=== PATIENT | female | born 1990 | race Caucasian/White ===

== ENCOUNTER 2020-05-24 03:14 | Inpatient (IN) | payer MEDICAID ==
[2020-05-18 10:19] LABS: ABSOLUTE EOSINOPHILS # (AUTO) 0.1 10^3/uL (0.0-0.6); ABSOLUTE MONOCYTES (AUTO) 0.5 10^3/uL (0.1-1.4); ABSOLUTE NEUT (AUTO) 5.7 10^3/uL (1.7-8.2); BASOPHILS % (AUTO) 0.4 % (0-2); EOSINOPHILS % (AUTO) 1.1 % (0-6); HEMATOCRIT 33.4 % (36.0-47.0); HEMOGLOBIN 11.9 g/dL (12.0-15.5); LYMPHOCYTES % (AUTO) 23.9 % (13-45); MEAN CORPUSCULAR HGB CONC 35.7 g/dL (32.0-36.0); MEAN CORPUSCULAR VOLUME 87 fl (80-97); MONOCYTES % (AUTO) 6.1 % (3-13); PLATELET COUNT 134 10^3/uL (150-450); RED BLOOD COUNT 3.84 10^6/uL (3.72-5.28); RED CELL DISTRIBUTION WIDTH 12.8 % (11.5-14.0); SEGMENTED NEUTROPHILS % (AUTO) 68.5 % (42-78); TOTAL CELLS COUNTED % (AUTO) 100 %; WHITE BLOOD COUNT 8.2 10^3/uL (4.0-10.5)
[2020-05-18 10:35] LABS: APPEARANCE,URINE SLIGHTLY-CLOUDY; BILIRUBIN,URINE NEGATIVE (NEGATIVE); COLOR,URINE YELLOW; GLUCOSE, URINE NEGATIVE (NEGATIVE); KETONES,URINE NEGATIVE (NEGATIVE); LEUKOCYTE ESTERASE,URINE MODERATE (NEGATIVE); NITRITE,URINE NEGATIVE (NEGATIVE); PROTEIN,URINE NEGATIVE (NEGATIVE); URINE SPECIFIC GRAVITY 1.009; UROBILINOGEN,URINE NEGATIVE mg/dL (<2.0)
[2020-05-18 10:36] LABS: URINE AMPHETAMINES SCREEN NEGATIVE; URINE BARBITURATES SCREEN NEGATIVE; URINE BENZODIAZEPINES SCREEN NEGATIVE; URINE COCAINE SCREEN NEGATIVE; URINE MARIJUANA (THC) SCREEN NEGATIVE; URINE METHADONE SCREEN NEGATIVE; URINE PHENCYCLIDINE SCREEN NEGATIVE
[2020-05-24] MEDS ORDERED: RINGERS SOLUTION,LACTATED 1,000 ML IV PRN ×2 (05:00→12:33)
[2020-05-24] MEDS ORDERED: LACTATED RINGERS 1000 ML IV PRN (05:00)
[2020-05-24] MEDS ORDERED: CEFAZOLIN 2 GM/D5W RTU 2 GM/50 ML RTUPB IV PRN (05:00)
[2020-05-24] MEDS ORDERED: EPHEDRINE SULFATE INJ 50 MG/1 ML AMPULE ONE (10:39)
[2020-05-24] MEDS ORDERED: GLYCOPYRROLATE INJ 0.4 MG/2 ML VIAL ONE (10:39)
[2020-05-24] MEDS ORDERED: MIDAZOLAM 2 MG/2 ML INJ ONE (10:39)
[2020-05-24] MEDS ORDERED: OXYTOCIN 10 UNIT/ML VIAL ONE (10:39)
[2020-05-24] MEDS ORDERED: KETOROLAC TROMETHAMINE INJ/PF 30 MG/1 ML SDV ONE (10:39)
[2020-05-24] MEDS ORDERED: FENTANYL CITRATE INJ/PF 100 MCG/2 ML AMPUL ONE (10:39)
[2020-05-24] MEDS ORDERED: OXYTOCIN/0.9 % SODIUM CHLORIDE 30 UNIT/500 ML RTUINJ ONE (10:39)
[2020-05-24] MEDS ORDERED: ACETAMINOPHEN 1,000 MG/100 ML RTUPB IV ONE (10:40)
[2020-05-24] MEDS ORDERED: ONDANSETRON HCL INJ/PF 4 MG/2 ML SDV ONE (10:40)
[2020-05-24] MEDS ORDERED: CEFAZOLIN 2 GM/D5W RTU 2 GM/50 ML RTUPB IV ONE (11:18)
[2020-05-24] MEDS ORDERED: MEPERIDINE HCL/PF INJ 25 MG/1 ML DISP.SYRIN IV PRN (11:28)
[2020-05-24] MEDS ORDERED: OXYCODONE-ACETAMINOPHEN 5-325 MG TABLET PO PRN ×3 (11:28→12:33)
[2020-05-24] MEDS ORDERED: DIPHENHYDRAMINE HCL 50 MG/ML VIAL IV PRN (11:28)
[2020-05-24] MEDS ORDERED: PROMETHAZINE HCL INJ 25 MG/1 ML VIAL IV PRN ×3 (11:28→12:33)
[2020-05-24] MEDS ORDERED: FENTANYL CITRATE INJ/PF 100 MCG/2 ML AMPUL IV PRN ×3 (11:28)
[2020-05-24] MEDS ORDERED: MORPHINE SULFATE 10 MG/ML INJ IV PRN (11:28)
[2020-05-24] MEDS ORDERED: OXYTOCIN/0.9 % SODIUM CHLORIDE 30 UNIT/500 ML RTUINJ IV PRN (12:33)
[2020-05-24] MEDS ORDERED: ACETAMINOPHEN 325 MG TABLET PO PRN (12:33)
[2020-05-24] MEDS ORDERED: SIMETHICONE 80 MG TAB.CHEW PO PRN (12:33)
[2020-05-24] MEDS ORDERED: DIPH/PERTUSS(ACELL)/TETANUS VAC/PF 0.5 ML SYR (>=10YO) IM PRN (12:33)
[2020-05-24] MEDS ORDERED: MEASLES,MUMPS&RUBELLA VACC/PF 0.5 ML VIAL SUBCUT PRN (12:33)
--- NOTE | 2020-05-24 12:33 | Operative Report ---
Operative Report DATE OF SURGERY: 05/24/20 PREOPERATIVE DIAGNOSIS: Intrauterine at 39+ weeks EGA by first enedina mayers . Prior section. Unwanted fertility POSTOPERATIVE DIAGNOSIS: Same as above OPERATION: Repeat section and bilateral tubal ligation SURGEON: CHRISTOPHER EMMANUEL ANESTHESIA: Spinal TISSUE REMOVED OR ALTERED: Placenta COMPLICATIONS: None ESTIMATED BLOOD LOSS: 800cc INTRAOPERATIVE FINDINGS: Normal appearing uterus, bilateral fallopian tubes and ovaries. Mild scar tissue between rectus fascia and rectus muscles PROCEDURE: IV fluids: per anesthesia record Urinary output: 300 cc clear yellow urine Position: To recovery room in stable condition Description of procedure: The patient was taken to the operating room and spinal anesthesia was administered and found to be adequate. She was then placed on the OR table in the supine position with a slight leftward tilt. Patient was prepped and draped in usual sterile fashion. Ancef 2 gms was given IV prior to the procedure for infection prophylaxis. Timeout was taken. A Pfannenstiel skin incision was then made approximately 3 cm above the pubic symphysis and carried down to level the rectus fascia. The rectus fascia was then nicked in the midline with a scalpel and the fascial incision was extended laterally with use of curved Wolf scissors. The rectus fascia was then grasped with 2 Kocker clamps elevated and the underlying rectus muscle was dissected off both bluntly and sharply. Scar tissue noted as above. Any bleeding controlled with cautery. The rectus muscles were then split in the midline and the peritoneum was entered. The peritoneal incision was then extended by manually stretching the peritoneum. The bladder blade was positioned. Bladder was noted to be out of harm's way. A scalpel was then used in the lower uterine for the hysterotomy, slowly until amniotomy was obtained a large amount of fluid was noted. The uterine incision was then manually stretched. The infant was noted to be in vertex postion but engaged in the pelvis. The head was delivered with minmal difficulty. The shoulders and the rest of the body followed immediately. The cord was cut clamped and the infant was handed off to the nurse awaiting. was crying prior to hand off. The placenta was manually delivered. Using a lap gauze the uterus was cleared of all clots and debris. The uterus was then exteriorized and a bladder blade was repositioned. The uterine incision was then closed with 0 Chromic suture in a running locked fashion. A second layer of the same suture was used in a running locked imbricated fashion. The uterine incision was inspected and noted to be hemostatic. The posterior aspect of the uterus was then inspected and anatomy was seen as above. The right fallopian tube was identified and traced to the fimbriated end. A filshie clip was placed approximately 2 cm from the uterine cornu. Clip surrounded the tube in its entirety. Blanching noted and hemostasis. The left fallopian tube was identified and traced to the fimbriated end. A filshie clip was placed approximately 2 cm from the uterine cornu. Clip surrounded the tube in its entirety. Blanching noted and hemostasis. The uterus was returned to its normal anatomic position within the abdominal cavity. Warm saline irrigation was used to clear all clots and debris from the abdomen. The uterine incision was inspected once more and noted to remain hemostatic. The bladder blade was removed and the peritoneum was closed with 2-0 chromic in a running fashion. The rectus muscles were then reapproximated and the rectus fascia was closed with a #0 looped PDS in a running fashion. The subcutaneous tissue was then inspected and any bleeding was controlled with Bovie electrocautery. The subcutaneous tissue was then closed with 2-0 Plain Gut suture in a running fashion. The skin was then closed with 3-0 Monocryl in a running subcuticular fashion. The skin incision was then clean dried and Dermabond was applied over the skin incision. All instrument sponge and needle counts were correct x3 for the procedure the patient tolerated the procedure well. She will proceed to recovery room in stable condition
[2020-05-24] MEDS ORDERED: HYDROMORPHONE HCL INJ/PF 2 MG/ML AMPULE ONE (13:21)
[2020-05-24] MEDS: HYDROMORPHONE HCL INJ/PF 2 MG/ML AMPULE IV PRN ×2 (13:23→17:21)
[2020-05-24] MEDS: OXYCODONE-ACETAMINOPHEN 5-325 MG TABLET PO PRN (14:55)
[2020-05-24] MEDS: DOCUSATE SODIUM 100 MG CAPSULE PO SCH (17:21)
[2020-05-24] MEDS ORDERED: KETOROLAC TROMETHAMINE INJ/PF 30 MG/1 ML SDV IV SCH (18:00)
[2020-05-24] MEDS: KETOROLAC TROMETHAMINE INJ/PF 30 MG/1 ML SDV IV SCH (22:29)
[2020-05-25] MEDS: KETOROLAC TROMETHAMINE INJ/PF 30 MG/1 ML SDV IV SCH (06:10)
[2020-05-25 07:58] LABS: HEMATOCRIT 30.4 % (36.0-47.0); HEMOGLOBIN 10.4 g/dL (12.0-15.5); MEAN CORPUSCULAR HGB CONC 34.3 g/dL (32.0-36.0); MEAN CORPUSCULAR VOLUME 87 fl (80-97); PLATELET COUNT 133 10^3/uL (150-450); RED BLOOD COUNT 3.48 10^6/uL (3.72-5.28); RED CELL DISTRIBUTION WIDTH 12.6 % (11.5-14.0); WHITE BLOOD COUNT 11.6 10^3/uL (4.0-10.5)
[2020-05-25] MEDS: DOCUSATE SODIUM 100 MG CAPSULE PO SCH ×2 (09:03→17:06)
[2020-05-25] MEDS: PRENATAL VITAMIN W DHA CAPSULE PO SCH (09:03)
[2020-05-25] MEDS: OXYCODONE-ACETAMINOPHEN 5-325 MG TABLET PO PRN ×2 (10:49→20:39)
--- NOTE | 2020-05-25 11:03 | PDOC PROGRESS REPORT ---
Subjective-OB Progress Note for:: 05/25/20 Subjective: Pt doing well, no concerns. She reports light bleeding reg diet and voiding w/o difficulty. Physical Exam (OB) Vital Signs: Temp Pulse Resp BP Pulse Ox 97.3 F 80 17 120/69 100 05/25/20 07:39 05/25/20 07:39 05/25/20 07:39 05/25/20 07:39 05/25/20 07:39 Intake & Output 05/24/20 05/25/20 05/26/20 06:59 06:59 06:59 Intake Total 1640 Output Total 1400 Balance 240 - PIH/Pre-Eclampsia Clonus: Negative Headache: Absent Epigastric Pain: No Visual Changes: No - Dressing Removed: No Incision: Dressing, Well Approximated Closure Type: Opsite - Maternal Morbidity 59. Maternal Morbidity (serious complications experinced by the mother associated with labor and delivery: None of the above - Lochia Lochia Amount: Small 10-25 ml Lochia Color: Rubra/Red - Abdomen Description: Soft, Round Hernia Present: No Fundal Description: Firm, Midline Fundal Height: u/u - u/2 Objective-Diagnostic Laboratory: 05/25/20 07:48 05/25/20 07:48 WBC 11.6 H RBC 3.48 L Hgb 10.4 L Hct 30.4 L MCV 87 MCH 30.0 MCHC 34.3 RDW 12.6 Plt Count 133 L Assessment and Plan(PN) - Assessment and Plan (1) delivery delivered Is this a current diagnosis for this admission?: Yes - Time Spent with Patient Time with patient: Less than 15 minutes Medications reviewed and adjusted accordingly: Yes - Disposition Anticipated Discharge Disposition: Home, Self Care Anticipated Discharge Timeframe: within 24 hours
[2020-05-25] MEDS: IBUPROFEN 800 MG TABLET PO SCH ×2 (14:28→21:53)
--- OUTSIDE RECORDS SUMMARY | 2020-05-25 17:59 | XMS REPORT ---
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 unspecified site Encounter for other general counseling and Active advice on contraceptive management Acute upper respiratory infections of Active unspecified site Encounter for other general counseling and Active advice on contraceptive management Acute upper respiratory infections of Active unspecified site Encounter for other general counseling and Active advice on contraceptive management Acute upper respiratory infections of Active unspecified site Encounter for other general counseling and Active advice on contraceptive management Acute upper respiratory infections of Active unspecified site Encounters Start End Encounter Admission Attending Care Care Encounter ID Date/Time Date/Time Type Type Clinicians Facility Department 2018-05-18 2018-05-18 [facility] CHRIS BOBBY [facility] [id number] 13:20:03 13:57:44 MARIAJOSE 2018-05-01 2018-05-01 [facility] [id number] 14:51:58 15:27:23 2018-05-01 2018-05-01 [facility] CHRIS WEAEVR [facility] [id number] 14:51:58 15:27:23 PAULA 2018-04-17 2018-04-17 Outpatient [facility] [id number] 00:00:00 00:00:00 2018-04-16 2018-04-16 Outpatient [facility] [id number] 00:00:00 00:00:00 2017-11-06 2017-11-06 Outpatient [facility] [id number] 00:00:00 00:00:00 [id number] 2017-11-05 [facility] CHRIS WEAVER [facility] [id number] 14:05:20 15:11:56 PAULA 2017-10-17 2017-10-17 [facility] CHRIS BOBBY [facility] [id number] 09:57:36 10:55:37 MARIAJOSE 2017-09-25 2017-09-25 Outpatient [facility] [id number] 14:57:41 16:50:07 [id number] 2017-09-25 2017-09-25 Outpatient [facility] [id number] 00:00:00 00:00:00 [id number] 2017-09-16 [facility] CHRIS BOBBY [facility] [id number] 09:56:01 11:08:14 MARIAJOSE 2017-08-17 2017-08-17 Emergency [facility] [id number] 14_20 15:40:03 15:52:00 [id number] 2017-08-17 2017-08-17 Emergency [facility] [id number] 15:40:03 15:52:00 2017-08-17 2017-08-17 Emergency ER [facility] [id number] 14_[id number] 15:18:00 15:18:00 [id number] 2017-08-11 2017-08-11 Emergency ER BIBIANA [facility] [id number] 12:01:22 13:31:00 EDI [id number] 2017-08-11 2017-08-11 Emergency [facility] [id number] 12:01:22 13:31:00 2017-08-11 2017-08-11 Emergency ER [facility] [id number] 11:02:00 11:02:00 [id number] 2017-08-09 2017-08-10 Emergency ER CAITLYN [facility] [id number] 23:20:29 02:21:00 FAUSTINO [id number] 2017-08-09 2017-08-10 Emergency [facility] [id number] 23:20:29 02:21:00 2017-08-09 2017-08-09 Emergency [facility] [id number] 23:43:12 23:59:00 [id number] 2017-08-09 2017-08-09 Emergency ER [facility] [id number] 23:03:00 23:03:00 [id number] 2017-08-01 2017-08-01 Outpatient Candiceferman [facility] [place] [id number] 00:00:00 00:00:00 Celena CAMPOS 360 [facility] 2017-03-26 2017-03-26 Outpatient Candiceferman [facility] [place] [id number] 00:00:00 00:00:00 Celena CAMPOS 320 [facility] 2017-01-06 2017-01-06 Outpatient Christa COLLAZO, [facility] [place] [id number] 00:00:00 00:00:00 Liseth Duff 170 [facility] 2016-10-08 2016-10-08 Outpatient Bruna YOUNG, [facility] [place] [id number] 00:00:00 00:00:00 Delmi Duff 880 [facility] 2016-07-19 2016-07-19 Outpatient Silverio COLLAZO, [facility] [place] [id number] 00:00:00 00:00:00 Joe Duff 670 [facility] 2016-01-24 2016-01-24 Outpatient Bruna YOUNG, [facility] [place] [id number] 00:00:00 00:00:00 Delmijermaine Duff 720 [facility] 2015 2015 Outpatient Svetach PA-C, [facility] [place] [id number] 00:00:00 00:00:00 Delmi Duff 060 [facility] 2015-09-20 2015-09-20 Outpatient Alvarenga FOREIGN SERVICE TEACHER, [facility] [place] [id number] 13:00:00 13:00:00 [facility] 2015-09-20 2015-09-20 Outpatient Alvarenga FOREIGN SERVICE TEACHER, [facility] [place] [id number] 00:00:00 00:00:00 [facility] 380 [facility] 2015-09-14 2015-09-14 Outpatient [facility] [place] [id number] 13:40:00 13:40:00 [facility] 2015-07-25 2015-07-25 Outpatient Svetach PA-C, [facility] [place] 15 [id number] 10:20:00 10:20:00 [facility] 2015-07-25 2015-07-25 Outpatient Svetach PA-C, [facility] [place] [id number] 00:00:00 00:00:00 Delmi Duff 0 [facility] Immunizations Ordered Immunization Filled Immunization Date Status Commen ts Refusal Reason Name Name TdaP 2017-08-11 Completed 00:00:00 HiB, unspecified 1994-09-02 Completed 00:00:00 OPV 1994-09-02 Completed 00:00:00 DTP 1994-09-02 Completed 00:00:00 MMR 1994-02-27 Completed 00:00:00 Hepatitis B, Adult 1993-07-18 Completed 00:00:00 HiB, unspecified 1993-06-15 Completed 00:00:00 DTP 1993-06-15 Completed 00:00:00 HiB, unspecified 1993-04-25 Completed 00:00:00 OPV 1993-04-25 Completed 00:00:00 DTP 1993-04-25 Completed 00:00:00 Hepatitis B, Adult 1993-02-12 Completed 00:00:00 HiB, unspecified 1993-02-12 Completed 00:00:00 OPV 1993-02-12 Completed 00:00:00 DTP 1993-02-12 Completed 00:00:00 Hepatitis B, Adult 1992 Completed 00:00:00 Payers Payer Name Policy Type Policy Number Effective Date Expiration D ate [facility] OTHER 1 [id number] 2017 00:00: 00 [place] 3 [id number] 2018 00:00:00 PLANNING [facility] [id number] 2017 00:00:00 [place] [id number] 2010 00:00:00 PLANNING Plan of Treatment Planned Activity Planned Date Details Comments Future Scheduled Test [code = ] Future Scheduled Test [code = ] Future Scheduled Test [code = ] Future Scheduled Test [code = ] Future Scheduled Test [code = ] Future Scheduled Test [code = ] Future Scheduled Test [code = ] Future Scheduled Test [code = ] Future Scheduled Test [code = ] Future Scheduled Test [code = ] Future Scheduled Test [code = ] Social History Social Habit Start Date Stop Date Comments Tobacco smoking status [facility] 2017-08-17 00:00:00 2017-08-17 00:00 :00 Smoking Status Start Date Stop Date Never smoker 2018-05-01 00:00:00 Vital Signs Vital Name Observation Time Observation Value Comments SYSTOLIC BLOOD PRESSURE 2018-05-01 14:55:00 112 mm[Hg] DIASTOLIC BLOOD PRESSURE 2018-05-01 14:55:00 72 mm[Hg] HEART RATE 2018-05-01 14:55:00 89 /min HEIGHT 2018-05-01 14:55:00 162.6 cm WEIGHT 2018-05-01 14:55:00 94.348 kg BODY MASS INDEX 2018-05-01 14:55:00 35.70 kg/m2 DIASTOLIC BLOOD PRESSURE 2017-08-17 15:26:00 81 mm[Hg] HEART RATE 2017-08-17 15:26:00 89 /min BODY TEMPERATURE 2017-08-17 15:26:00 37.06 [place] RESPIRATORY RATE 2017-08-17 15:26:00 16 /min OXYGEN SATURATION 2017-08-17 15:26:00 99 % SYSTOLIC BLOOD PRESSURE 2017-08-17 15:26:00 132 mm[Hg] SYSTOLIC BLOOD PRESSURE 2017-08-11 11:19:00 131 mm[Hg] DIASTOLIC BLOOD PRESSURE 2017-08-11 11:19:00 75 mm[Hg] HEART RATE 2017-08-11 11:19:00 107 /min BODY TEMPERATURE 2017-08-11 11:19:00 36.11 Fatemeh RESPIRATORY RATE 2017-08-11 11:19:00 17 /min OXYGEN SATURATION 2017-08-11 11:19:00 98 % SYSTOLIC BLOOD PRESSURE 2017-08-10 02:09:00 122 mm[Hg] DIASTOLIC BLOOD PRESSURE 2017-08-10 02:09:00 71 mm[Hg] HEART RATE 2017-08-10 02:09:00 109 /min BODY TEMPERATURE 2017-08-10 02:09:00 36.72 Fatemeh RESPIRATORY RATE 2017-08-10 02:09:00 18 /min OXYGEN SATURATION 2017-08-10 02:09:00 97 % HEIGHT 2017-08-09 23:08:00 165.1 cm WEIGHT 2017-08-09 23:08:00 90.719 kg
[2020-05-26] MEDS: OXYCODONE-ACETAMINOPHEN 5-325 MG TABLET PO PRN (04:55)
[2020-05-26] MEDS: IBUPROFEN 800 MG TABLET PO SCH (05:02)
[2020-05-26] MEDS: PRENATAL VITAMIN W DHA CAPSULE PO SCH (09:32)
[2020-05-26] MEDS: DOCUSATE SODIUM 100 MG CAPSULE PO SCH (09:32)
--- NOTE | 2020-05-26 10:50 | PDOC PROGRESS REPORT ---
Subjective-OB Progress Note for:: 05/26/20 Subjective: doing well, ready to go home, bottle feeding, holding baby, passing gas, eating and voiding, has help at home, pain under control Physical Exam (OB) Vital Signs: Temp Pulse Resp BP Pulse Ox 97.7 F 90 17 125/70 100 05/26/20 10:24 05/26/20 10:24 05/26/20 10:24 05/26/20 10:24 05/26/20 10:24 Intake & Output 05/25/20 05/26/20 05/27/20 06:59 06:59 06:59 Intake Total 1640 1400 Output Total 1400 Balance 240 1400 - PIH/Pre-Eclampsia Clonus: Negative Headache: Absent Epigastric Pain: No Visual Changes: No - Dressing Removed: No Incision: Dressing, Well Approximated Closure Type: Opsite - Maternal Morbidity 59. Maternal Morbidity (serious complications experinced by the mother associated with labor and delivery: None of the above - Lochia Lochia Amount: Scant < 10 ml Lochia Color: Rubra/Red - Abdomen Description: Tender, Soft Hernia Present: No Fundal Description: Firm, Midline Fundal Height: u/u - u/2 Objective-Diagnostic Laboratory: 05/25/20 07:48 Assessment and Plan(PN) - Assessment and Plan (1) GBS (group B Streptococcus carrier), +RV culture, currently Is this a current diagnosis for this admission?: Yes (2) delivery delivered Is this a current diagnosis for this admission?: Yes - Time Spent with Patient Time with patient: Less than 15 minutes Medications reviewed and adjusted accordingly: Yes - Disposition Anticipated Discharge Disposition: Home, Self Care Anticipated Discharge Timeframe: within 24 hours - home today
--- NOTE | 2020-05-26 10:56 | PDOC DISCHARGE SUMMARY ---
Impression - Admit/DC Date/PCP Admission Date/Primary Care Provider: 05/24/20 07:52 CHRISTOPHER EMMANUEL MD Discharge Date: 05/26/20 - Discharge Diagnosis (1) GBS (group B Streptococcus carrier), +RV culture, currently Is this a current diagnosis for this admission?: Yes (2) delivery delivered Is this a current diagnosis for this admission?: Yes - Additional Information Resuscitation Status: Full Code Discharge Diet: As Tolerated, Regular Discharge Activity: Activity As Tolerated, No Driving, No Lifting Over 10 Pounds, No Lifting/Push/Pulling, Pelvic Rest, No tub bath Referrals: [facility] [Provider Group] (wha 1 week) Prescriptions: Oxycodone HCl/Acetaminophen [Percocet 5-325 mg Tablet] 1 tab PO Q4HP PRN #20 tablet PRN Reason: Ibuprofen [Motrin 800 mg Tablet] 800 mg PO Q8 #30 tablet Home Medications: Docusate Sodium [Colace] 100 mg PO ASDIR PRN 05/18/20 Vits96/Iron Fum/Folic [ Tablet] 1 tab PO DAILY 05/18/20 Ibuprofen [Motrin 800 mg Tablet] 800 mg PO Q8 #30 tablet 05/26/20 Oxycodone HCl/Acetaminophen [Percocet 5-325 mg Tablet] 1 tab PO Q4HP PRN #20 tablet 05/26/20 HPI Gestational Age: 39 Reason(s) for Admission: Ceasarean Section-Repeat, Group B Strep Positive Procedures: NST, Ultrasound Intrapartum Procedure(s): : Low Cervical, Transverse Hospital Course Hospital Course: routine post op 59. Maternal Morbidity (serious complications experinced by the mother associated with labor and delivery: None of the above Results Laboratory Results: WBC 11.6 10^3/uL (4.0-10.5) H 05/25/20 07:48 RBC 3.48 10^6/uL (3.72-5.28) L 05/25/20 07:48 Hgb 10.4 g/dL (12.0-15.5) L 05/25/20 07:48 Hct 30.4 % (36.0-47.0) L 05/25/20 07:48 MCV 87 fl (80-97) 05/25/20 07:48 MCH 30.0 pg (27.0-33.4) 05/25/20 07:48 MCHC 34.3 g/dL (32.0-36.0) 05/25/20 07:48 RDW 12.6 % (11.5-14.0) 05/25/20 07:48 Plt Count 133 10^3/uL (150-450) L 05/25/20 07:48 Lymph % (Auto) 23.9 % (13-45) 05/18/20 09:10 [place] % (Auto) 6.1 % (3-13) 05/18/20 09:10 Eos % (Auto) 1.1 % (0-6) 05/18/20 09:10 Baso % (Auto) 0.4 % (0-2) 05/18/20 09:10 Absolute Neuts (auto) 5.7 10^3/uL (1.7-8.2) 05/18/20 09:10 Absolute Lymphs (auto) 2.0 10^3/uL (0.5-4.7) 05/18/20 09:10 Absolute Monos (auto) 0.5 10^3/uL (0.1-1.4) 05/18/20 09:10 Absolute Eos (auto) 0.1 10^3/uL (0.0-0.6) 05/18/20 09:10 Absolute Basos (auto) 0.0 10^3/uL (0.0-0.2) 05/18/20 09:10 Seg Neutrophils % 68.5 % (42-78) 05/18/20 09:10 Urine Color YELLOW 05/18/20 09:00 Urine Appearance SLIGHTLY-CLOUDY 05/18/20 09:00 Urine pH 7.0 (5.0-9.0) 05/18/20 09:00 Ur Specific [place] 1.009 05/18/20 09:00 Urine Protein NEGATIVE mg/dL (NEGATIVE) 05/18/20 09:00 Urine Glucose (UA) NEGATIVE mg/dL (NEGATIVE) 05/18/20 09:00 Urine Ketones NEGATIVE mg/dL (NEGATIVE) 05/18/20 09:00 Urine Blood NEGATIVE (NEGATIVE) 05/18/20 09:00 Urine Nitrite NEGATIVE (NEGATIVE) 05/18/20 09:00 Urine Bilirubin NEGATIVE (NEGATIVE) 05/18/20 09:00 Urine Urobilinogen NEGATIVE mg/dL (<2.0) 05/18/20 09:00 Ur Leukocyte Esterase MODERATE (NEGATIVE) H 05/18/20 09:00 Urine WBC (Auto) 1 /HPF 05/18/20 09:00 Urine RBC (Auto) 0 /HPF 05/18/20 09:00 Urine Bacteria (Auto) TRACE /HPF 05/18/20 09:00 Squamous Epi Cells Auto 4 /HPF 05/18/20 09:00 Urine Mucus (Auto) RARE /LPF 05/18/20 09:00 Urine Ascorbic Acid NEGATIVE (NEGATIVE) 05/18/20 09:00 Urine Opiates Screen NEGATIVE 05/18/20 09:00 Urine Methadone Screen NEGATIVE 05/18/20 09:00 Ur Barbiturates Screen NEGATIVE 05/18/20 09:00 Ur Phencyclidine Scrn NEGATIVE 05/18/20 09:00 Ur Amphetamines Screen NEGATIVE 05/18/20 09:00 U Benzodiazepines Scrn NEGATIVE 05/18/20 09:00 Urine Cocaine Screen NEGATIVE 05/18/20 09:00 U Marijuana (THC) Screen NEGATIVE 05/18/20 09:00 COVID-19 Source See comment 05/18/20 09:00 COVID-19 (ADRIANO) Not Detected (Not Detect) 05/18/20 09:00 Blood Type B POSITIVE 05/23/20 08:40 Antibody Screen NEGATIVE 05/23/20 08:40 Plan Health Concerns: pain control Plan of Treatment: discharge home, meds given, rev S&S to report Goals: no complications Time Spent: Less than 30 Minutes
[2020-05-26 11:23] VITALS: BP 133/81
--- NOTE | 2020-05-29 16:07 | Delivery Summary ---
Del Sum A-C Datetime Report Generated by CPN: 05/29/2020 16:07 DELIVERY PERSONNEL DELIVERY PERSONNEL: [id number] Delivery Doctor:: Esperanza Salazar MD (Annotations: Data stored by [facility] on behalf of user) Delivery Doctor:: Esperanza Salazar MD WHARF TALLY CLERK:: NormileSree Labor and Delivery Nurse:: Teresa Winston RN Talk Show Host:: Teresa Winston RN Neonatal Nurse Practitioner:: JULIO C Daniel Nursery Nurse:: Corina Albright RN Driving Teacher/NASCAR PIT CREW PERSON: Fany Webb CST Driving Teacher/NASCAR PIT CREW PERSON: Angélica Molina PERFECT BINDER SETTER MATERNAL INFORMATION Delivery Anesthesia: Spinal Medications After Delivery: Pitocin 30 Units in 500ml NS/D5W Estimated Blood Loss (ml): 850 Delivery QBL Comment: [phone] Maternal Complications: None Provider Comments: See operative report for details. (Annotations: Data stored by N on behalf of user) LABOR SUMMARY EDC: 05/29/2020 00:00 STAGES OF LABOR Stage 3 hr: 0 Stage 3 min: 1 CSECTION DELIVERY Primary Indication: Repeat Elective CSection Incision: Lower Uterine Transverse Sterilization Procedure: Ring and Clip Uterine Closure: N/A BABY A INFORMATION Infant Delivery Date/Time: 05/24/2020 11:33 Method of Delivery: Nurse Controlled Delivery: No Born in Route : No : N/A Forceps: N/A Vacuum Extraction: N/A Shoulder Dystocia : No PRESENTATION/POSITION BABY A Presentation: Cephalic Cephalic Presentation: Vertex Breech Presentation: N/A PLACENTA INFORMATION BABY A Placenta Delivery Time : 05/24/2020 11:34 Placenta Method of Delivery: Manual Removal Placenta Status: Delivered SCORES BABY A Heart Rate 1 min: >100 bpm Resp Effort 1 min: Good Cry Reflex Irritability 1 min: Cough or Sneeze or Pulls Away Muscle Tone 1 min: Active Motion Color 1 min: Blue/Pale SCORE 1 MIN: 8 Heart Rate 5 min: >100 bpm Resp Effort 5 min: Good Cry Reflex Irritability 5 min: Cough or Sneeze or Pulls Away Muscle Tone 5 min: Active Motion Color 5 min: Body [place], Extremities Blue SCORE 5 MIN: 9 INFANT INFORMATION BABY A Gestational Age at Delivery: 39.1 Gestational Status: Full Term- 39- 40.6 Weeks Infant Outcome : Liveborn Infant Condition : Stable Sex: Female IDENTIFICATION BABY A Infant Verification Date/Time: 05/24/2020 11:35 ID Band Number: [id number] Mother's Name Verified: Yes Infant RN Verifying : Alfredo, RN Additional Verifying Personnel: Jean Carlos Albright RN WEIGHT/LENGTH BABY A Birthweight (gm): 4535 Infant Weight (lb): 10 Infant Weight (oz): 0 Infant Length (in): 21.00 Length (cm): 53.34 CORD INFORMATION BABY A No. Cord Vessels: 3 Nuchal Cord : N/A True Knot: 0 Cord Blood Taken: Yes-For Eval (Mom's Blood Type - or O+) Infant Suction: Mouth; Nose ASSESSMENT BABY A Complications: None Physical Findings at Delivery: Within Normal Limits Infant Respirations: Appears Normal Skin to Skin: No Account Services Analyst/ALS Called : No Transferred To: Nursery SIGNATURES Signature: with User ID: [email or web address] : with User ID: [email or web address]
== END 2020-05-26 12:45 | disposition home or self-care (01) | DRG 785 ==
LOC: 2N 07:52
PROVIDERS: ADMIT Obstetrics & Gynecology; ATTEND Obstetrics & Gynecology
PROC: 10D00Z1 Extraction of Products of Conception, Low, Open Approach (ICD-10-PCS; principal; 2020-05-24)
PROC: 0UL70CZ Occlusion of Bilateral Fallopian Tubes with Extraluminal Device, Open Approach (ICD-10-PCS; 2020-05-24)
DX: O34.211 Maternal care for low transverse scar from previous cesarean delivery (principal); Z30.2 Encounter for sterilization; O99.824 Streptococcus B carrier state complicating childbirth; Z20.828 Contact with and (suspected) exposure to other viral communicable diseases; Z3A.39 39 weeks gestation of pregnancy; Z37.0 Single live birth
CPT/HCPCS: 1961; 36415; 59025; 80307; 81001; 85025; 85027; 86850; 86900; 86901; 87635; 94760; 94799; C9803; J0131; J0690; J1170; J1885; J2250; J2405; J2590; J3010; J3490